=== PATIENT | male | born 1960 | race Caucasian/White ===

== ENCOUNTER 2017-11-20 18:13 | Emergency (ER) | payer SELFPAY ==
[~2017-11-20] VITALS: Ht 185.4 cm; Wt 81.8 kg
[2017-11-20 18:14] VITALS: TEMP 97.9
[2017-11-20] MEDS ORDERED: PERCOCET 325 MG1 TA2 PO (20:55)
[2017-11-20 21:05] LABS: TRICYCLIC ANTIDEPRESS URINE NEGATIVE
[2017-11-20 21:43] VITALS: BP 126/85; PULSE 79
== END 2017-11-20 22:01 | disposition home or self-care (01) ==
LOC: COL.ER 18:13
PROVIDERS: Physician Assistant
DX: S32.029A Unspecified fracture of second lumbar vertebra, initial encounter for closed fracture (principal); S52.572A Other intraarticular fracture of lower end of left radius, initial encounter for closed fracture; F17.210 Nicotine dependence, cigarettes, uncomplicated; W11.XXXA Fall on and from ladder, initial encounter; Y92.89 Other specified places as the place of occurrence of the external cause; Y99.0 Civilian activity done for income or pay
CPT/HCPCS: J1170; J1885; J2405; Q4050